=== PATIENT | female | born 2000 | race Caucasian/White ===

== ENCOUNTER 2021-02-12 19:51 | Emergency (ER) | payer OTHER, SELFPAY ==
--- NOTE | ~2021-02-12 | XR_ITS ---
EXAMINATION: XR chest 2V DATE: 02/12/2021 20:25 INDICATION: Chest pain and shortness of breath TECHNIQUE: PA and lateral views of the chest are obtained. COMPARISON: None available FINDINGS: The lungs are free of acute opacities. There is no pleural effusion or pneumothorax. The ca rdiomediastinal silhouette is normal. The visualized bones and soft tissues are unremarkable. IMPRESSION: 1. No acute cardiopulmonary abnormality. Reviewed, dictated and finalized at location A.
--- NOTE | 2021-02-12 20:03 | ECG_ITS ---
Measurements Intervals [place] Rate: 90 P: 56 [place]: 144 QRS: 62 QRSD: 71 T: 35 QT: 334 QTc: 409 Interpretive Statements SINUS RHYTHM BASELINE WANDER- II, III, AVF, V4-V6 NORMAL ECG Electronically Signed On 02-13-2021 7:32:29 CDT by Paco Painter D.O.
[2021-02-12 20:12] VITALS: BP 170/100; PULSE 110; RESP 16; TEMP 37.2; O2SAT 100
--- NOTE | 2021-02-12 20:49 | ED.CHESTPAIN ---
HPI - Chest Pain General Chief Complaint: Chest Pain Stated Complaint: chest pain after 2nd Covid vaccine Time Seen by Provider: 02/12/21 20:45 History of Present Illness HPI narrative: 20 yo female with no significnat medical history presents to the ED c/o chest pain. She has had mild-moderate sharp pain accross the top of her chest bilaterally since last ngiht. Slightly worse with breathing. Associated with aches and chills. She had the second covid-19 vaccination yesterdy and was feeling well prior to that. Related Data Allergies Allergy/AdvReac Type Severity Reaction Status Date / Time No Known Allergies Allergy Verified 02/12/21 21:36 Review of Systems Review of Systems: All systems reviewed & are unremarkable except as noted in HPI and below ENT: Denies sore throat Respiratory: Respiratory: Denies dyspnea Gastrointestinal: Gastrointestinal: Denies abdominal pain, Denies nausea and Reports vomiting Genitourinary: Genitourinary: Reports no additional female genitourinary complaints, Denies hematuria and Denies dysuria Neurologic: Reports dizziness, Reports headache(s) and Denies weakness [facility] Social History Social History (Updated 02/23/21 @ 10:27 by Bienvenido Sharma MD) Smoking status: Never smoker Substance use: never Exam Const: General: healthy appearing, no acute distress and alert Orientation/consciousness: patient oriented x3 HENMT: Head: normal to inspection Neck: Neck: normal visual inspection and no lymphadenopathy Chest: Chest palpation & inspection: no tenderness Resp: Effort & Inspection: normal respiratory effort Auscultation: clear to auscultation bilaterally, no rales, no rhonchi and no wheezes Cardio: Jugular venous distension: no JVD Rate: regular rate Rhythm: regular rhythm Heart sounds: no murmurs GI: Inspection: non-distended GI Palp: Yes Soft to palpation and No Tenderness to palpation present (GI) Skin: General skin exam: normal color Neuro: General: patient oriented x3 and moves all extremities Speech: normal speech Extrem: General: no edema Psych: Appearance: well kempt Affect: Anxious affect present Course Vital Signs Vital signs: Vital Signs Temperature 37.2 C 02/12/21 20:12 Pulse Rate 110 H 02/12/21 20:12 Respiratory Rate 16 02/12/21 20:12 Blood Pressure 170/100 H 02/12/21 20:12 Pulse Oximetry 100 02/12/21 20:12 Temperature 37.1 C 02/12/21 22:15 Pulse Rate 89 02/12/21 22:15 Respiratory Rate 20 02/12/21 22:15 Blood Pressure 145/86 H 02/12/21 22:15 Pulse Oximetry 100 02/12/21 22:15 MDM - Chest Pain MDM Narrative Medical decision making narrative: Mild fever, Nomal EKG, x-ray negative, labs unremarkable. Symptoms most likely benign reaction to the vaccine Medical Records Data Attestation: I reviewed the patient's medical records. Lab Data Attestation: I reviewed the patient's lab results. Result diagrams: 02/12/21 21:18 02/12/21 21:18 Labs: Lab Results 02/12/21 02/12/21 02/12/21 Range/Units 21:18 21:18 21:51 WBC 6.0 (4.5-10.0) K/mm3 RBC 4.72 (4.2-5.4) M/mm3 Hgb 14.5 (12.0-15.0) g/dL Hct 43.5 (37.0-47.0) % MCV 92.2 (80-100) fl MCH 30.7 (26-34) pg MCHC 33.3 (32-36) g/dl RDW 11.9 (11.5-14.5) % Plt Count 246 (150-375) k/mm3 MPV 10.1 (7.4-10.4) fl Immature Gran % (Auto) 0.3 (0-0.5) % Neut % (Auto) 64.0 (45.5-73.1) % Lymph % (Auto) 26.3 (18.3-44.2) % [place] % (Auto) 8.2 (2.6-8.5) % Eos % (Auto) 0.5 (0-4.4) % Baso % (Auto) 0.7 (0.2-1.2) % Lymph # (Auto) 1.58 (0.9-3.2) K/mm3 [place] # (Auto) 0.5 (0.1-0.6) K/mm3 Eos # (Auto) 0.0 (0-0.3) K/mm3 Baso # (Auto) 0.0 (0.0-0.1) K/mm3 Abs Immat Gran (auto) 0.02 (0.00-0.031) K/mm3 Absolute Neuts (auto) 3.9 (1.3-6.7) K/mm3 Absolute Nucleated RBC 0.0 (0.0-0.012) K/mm3 Nucleated RBC % 0.0 (0.0-0.2) % PT 11.5 (11.1-14.7)
[2021-02-12] MEDS: ASPIRIN 81 MG CHEWABLE TABLET 324 MG PO (21:19)
[2021-02-12 21:28] LABS: Basophils Percent Auto 0.7 % (0.2-1.2); Eosinophils Percent Auto 0.5 % (0-4.4); Hematocrit 43.5 % (37.0-47.0); Hemoglobin 14.5 g/dL (12.0-15.0); Immature Granulocyte Absolute 0.02 K/mm3 (0.00-0.031); Immature Granulocyte Percent A 0.3 % (0-0.5); Lymphocytes Absolute Auto 1.58 K/mm3 (0.9-3.2); Lymphocytes Percent Auto 26.3 % (18.3-44.2); Mean Corpuscular HGB Conc 33.3 g/dl (32-36); Mean Corpuscular Hemoglobin 30.7 pg (26-34); Mean Corpuscular Volume 92.2 fl (80-100); Mean Platelet Volume 10.1 fl (7.4-10.4); Monocytes Absolute Auto 0.5 K/mm3 (0.1-0.6); Monocytes Percent Auto 8.2 % (2.6-8.5); Neutrophils Absolute Auto 3.9 K/mm3 (1.3-6.7); Platelet Count Result 246 k/mm3 (150-375); Red Blood Count 4.72 M/mm3 (4.2-5.4); Red Cell Distribution Width 11.9 % (11.5-14.5)
[2021-02-12 21:41] LABS: Anion Gap 13 mmol/L (8-16); Blood Urea Nitrogen 12 mg/dL (7-17); Calcium 9.4 mg/dL (8.4-10.2); Carbon Dioxide 22 mmol/L (22-30); Chloride 103 mmol/L (98-107); Estimated CRCL calculation 108 ml/min; Estimated Glomerular Filt Rate > 60; Glucose 87 mg/dL (65-110); Potassium 4.4 mmol/L (3.4-5.0); Sodium 138 mmol/L (137-145)
[2021-02-12 21:53] LABS: Troponin I < 0.012 ng/mL (0.000-0.034)
[2021-02-12 21:58] VITALS: BP 146/86; PULSE 91; RESP 16; O2SAT 99
[2021-02-12 22:06] LABS: INR 0.8; Prothrombin Time 11.5 Seconds (11.1-14.7)
[2021-02-12 22:07] LABS: Partial Thromboplastin Time 22.9 SECONDS (22.3-36.8)
[2021-02-12 22:15] VITALS: BP 145/86; PULSE 89; RESP 20; TEMP 37.1; O2SAT 100
== END 2021-02-12 22:15 | disposition home or self-care (01) ==
PROVIDERS: Emergency Provider Emergency Medicine
DX: R07.89 Other chest pain (principal)
CPT/HCPCS: 36415; 71046; 80048; 84484; 85025; 85610; 85730; 93005; 99284; A9270